=== PATIENT | female | born 1930 | race Caucasian/White ===

== ENCOUNTER 2020-08-02 16:27 | Observation (INO) | payer MEDICARE ==
[~2020-08-02] VITALS: Ht 149.9 cm; Wt 63.3 kg
[2020-08-02 16:59] LABS: BASOPHILS # (AUTO) 0.1 (0.0-0.1); BASOPHILS % 0.8 % (0.0-1.0); EOSINOPHILS # (AUTO) 0.3 (0.0-0.4); EOSINOPHILS % 3.5 % (0.0-6.0); HEMATOCRIT 32.1 % (38.2-49.6); LYMPHOCYTES # (AUTO) 1.1 (1.0-3.2); MEAN CORPUSCULAR HGB CONC 31.2 g/dL (31-35); MONOCYTES # (AUTO) 0.8 (0.2-0.8); NEUTROPHILS # (AUTO) 6.5 (2.1-6.9); PLATELET COUNT 246 x10e3/uL (140-360); RED BLOOD COUNT 3.45 x10e6/uL (4.3-5.7); RED CELL DISTRIBUTION WIDTH 15.5 % (11.7-14.4)
[2020-08-02] MEDS ORDERED: ASPIRIN 81 MG CHEW TAB PO ONE (17:00)
[2020-08-02 17:03] LABS: INR 0.88; PROTHROMBIN TIME 12.5 seconds (11.9-14.5)
[2020-08-02 17:04] LABS: PARTIAL THROMBOPLASTIN TIME 33.2 seconds (23.8-35.5)
[2020-08-02] MEDS ORDERED: WOMEN'S DAILY1 EACH PO (17:06)
[2020-08-02] MEDS ORDERED: HYDRALAZINE HCL50 MG PO (17:06)
[2020-08-02] MEDS ORDERED: LASIX20 MG PO (17:06)
[2020-08-02] MEDS ORDERED: CARVEDILOL12.5 MG PO (17:06)
[2020-08-02] MEDS ORDERED: ASPIRIN CHEW81 MG PO (17:06)
[2020-08-02] MEDS ORDERED: ATORVASTATIN CA20 MG PO (17:06)
[2020-08-02] MEDS ORDERED: CLOPIDOGREL75 MG PO (17:06)
[2020-08-02 17:14] LABS: ALBUMIN 4.1 g/dL (3.5-5.0); ALBUMIN/GLOBULIN RATIO 1.2 (0.8-2.0); ANION GAP 16.1 mmol/L (8-16); CALCIUM 9.8 mg/dL (8.4-10.2); CREATININE, SERUM 2.38 mg/dL (0.72-1.25); POTASSIUM 4.1 mmol/L (3.5-5.1)
[2020-08-02 17:20] LABS: CREATINE KINASE MB 1.3 ng/mL (0-5.0)
[2020-08-02 17:47] LABS: CLARITY,URINE CLEAR (CLEAR); COLOR,URINE YELLOW (YELLOW); LEUKOCYTE ESTERASE ,URINE TRACE (NEGATIVE); NITRITE,URINE NEGATIVE (NEGATIVE)
[2020-08-02 17:48] LABS: KETONES,URINE NEGATIVE (NEGATIVE); PROTEIN,URINE DIPSTICK TRACE (NEGATIVE); URINE UROBILINOGEN 0.2 mg/dL (0.2 - 1)
[2020-08-02 18:00] LABS: RBC,URINE 0-5 /HPF (0-5)
[2020-08-02 18:01] LABS: BACTERIA,URINE RARE /HPF
[2020-08-02] MEDS ORDERED: CEFEPIME HCL 1GM 1 GM in SODIUM CHLORIDE 0.9% 50ML 50 ML IV STA (18:54)
[2020-08-02] MEDS ORDERED: ACETAMINOPHEN 325 MG TAB PO PRN (20:00)
[2020-08-02] MEDS ORDERED: POLYETHYLENE GLYCOL 3350 17 GM PACK PO PRN (20:00)
[2020-08-02] MEDS ORDERED: ONDANSETRON HCL INJ 2MG/ML 2ML 2 MG/ML VIAL IV PRN (20:00)
[2020-08-02] MEDS ORDERED: TEMAZEPAM 15 MG CAP PO PRN (20:00)
[2020-08-02] MEDS ORDERED: METOPROLOL TARTRATE INJ 1 MG/ML VIAL IV PRN (20:00)
[2020-08-02 21:39] VITALS: BP 175/54
[2020-08-03] VITALS (7 sets, daily range): BP systolic 94–175; BP diastolic 54–67
[2020-08-03 03:58] LABS: BASOPHILS # (AUTO) 0.1 (0.0-0.1); BASOPHILS % 0.9 % (0.0-1.0); EOSINOPHILS # (AUTO) 0.3 (0.0-0.4); EOSINOPHILS % 3.7 % (0.0-6.0); HEMATOCRIT 28.6 % (34.2-44.1); HEMOGLOBIN 9.1 g/dL (12.0-16.0); LYMPHOCYTES # (AUTO) 1.2 (1.0-3.2); LYMPHOCYTES % 15.1 % (18.0-39.1); MEAN CORPUSCULAR HEMOGLOBIN 29.4 pg (28-32); MEAN CORPUSCULAR HGB CONC 31.8 g/dL (31-35); MEAN CORPUSCULAR VOLUME 92.6 fL (81-99); MONOCYTES # (AUTO) 0.8 (0.2-0.8); MONOCYTES % 9.6 % (4.4-11.3); NEUTROPHILS # (AUTO) 5.6 (2.1-6.9); NEUTROPHILS % 70.3 % (38.7-80.0); PLATELET COUNT 215 x10e3/uL (140-360); RED BLOOD COUNT 3.09 x10e6/uL (3.6-5.1); RED CELL DISTRIBUTION WIDTH 15.3 % (11.7-14.4)
[2020-08-03 04:24] LABS: CREATINE KINASE MB 1.7 ng/mL (0-5.0)
[2020-08-03 04:38] LABS: PHOSPHORUS 4.7 MG/DL (2.3-4.7)
[2020-08-03 04:43] LABS: ANION GAP 16.7 mmol/L (8-16); CALCIUM 9.2 mg/dL (8.4-10.2); CHOL/HDL RATIO 2.2 (3.0-3.6); CREATININE, SERUM 2.23 mg/dL (0.57-1.11); POTASSIUM 3.7 mmol/L (3.5-5.1)
[2020-08-03 04:58] LABS: THYROID STIMULATING HORMONE 1.454 uIU/mL (0.350-4.940)
[2020-08-03] MEDS ORDERED: METOPROLOL TARTRATE INJ 1 MG/ML VIAL IV PRN (05:45)
[2020-08-03] MEDS ORDERED: FAMOTIDINE 20 MG TAB PO SCH (09:00)
[2020-08-03] MEDS ORDERED: DOCUSATE SODIUM 100 MG CAP PO SCH (09:00)
[2020-08-03] MEDS ORDERED: METOPROLOL TARTRATE 25 MG TAB PO SCH (09:00)
[2020-08-03] MEDS ORDERED: CARVEDILOL 12.5 MG TAB PO SCH (09:00)
[2020-08-03] MEDS ORDERED: ONDANSETRON HCL 4 MG ORAL DISINTEGRATING TAB PO PRN (10:30)
[2020-08-03 11:57] LABS: CREATINE KINASE MB 1.6 ng/mL (0-5.0)
[2020-08-03] MEDS ORDERED: CLOPIDOGREL BISULFATE 75 MG TAB PO SCH (21:00)
[2020-08-03] MEDS ORDERED: ATORVASTATIN 20 MG TAB PO SCH (21:00)
[2020-08-03] MEDS ORDERED: ASPIRIN 81 MG CHEW TAB PO SCH (21:00)
== END 2020-08-03 15:46 | disposition home or self-care (01) ==
LOC: ER 17:12 → EDSEX 19:02 → ERHOLD 19:02 → MED/SURG 22:10
PROVIDERS: ADMIT Internal Medicine; ATTEND Internal Medicine
DX: I48.91 Unspecified atrial fibrillation (principal); I25.2 Old myocardial infarction; I12.9 Hypertensive chronic kidney disease with stage 1 through stage 4 chronic kidney disease, or unspecified chronic kidney disease; N18.30 Chronic kidney disease, stage 3 unspecified; E78.5 Hyperlipidemia, unspecified; N17.9 Acute kidney failure, unspecified; Z87.891 Personal history of nicotine dependence; Z95.5 Presence of coronary angioplasty implant and graft; Z88.5 Allergy status to narcotic agent; Z88.8 Allergy status to other drugs, medicaments and biological substances; Z79.82 Long term (current) use of aspirin; Z82.49 Family history of ischemic heart disease and other diseases of the circulatory system; Z20.822 Contact with and (suspected) exposure to COVID-19
CPT/HCPCS: 36415 ×2; 71045; 76770; 80048; 80053; 80061; 81001; 82550 ×2; 82553 ×2; 83605; 83735; 83880; 84100; 84443; 84484 ×2; 85025 ×2; 85610; 85730; 87040; 87086; 93005; 93306; 99284; G0378 ×2; J0692; U0002